=== PATIENT | female | born 1960 | race Caucasian/White ===

== ENCOUNTER → 2019-04-15 | Outpatient (CLI) | payer OTHER ==
--- NOTE | 2019-04-15 12:56 | XR ---
Lumbosacral spine HISTORY: Back pain, degenerative disc disease 5 views of the lumbar spine, no comparisons There is a levoscoliosis centered at L3. Multilevel spondylosis is present. Lumbar vertebral bodies s how preserved height. There is no evident spondylolysis. Bone mineralization slightly reduced. There is loss of disc height at intervertebral levels. Minimal anterolisthesis grade 1 L5-S1. Sclerosis pre sent in the posterior elements. Vacuum phenomenon present at intervertebral levels L2-3, L3-4, L4-5 a nd L5-S1. Suspect vascular calcifications. Focus of increased density over the right sacrum is indeterminate an d may represent bone island. IMPRESSION: Degenerative disc disease, facet arthropathy, spinal curvature, osteopenia. Additional fi ndings above. Follow-up as indicated.
== END | disposition home or self-care (01) ==
LOC: RADXRMAIN 09:44
PROVIDERS: ATTEND Family Medicine
DX: M47.896 Other spondylosis, lumbar region (principal); M51.36 Other intervertebral disc degeneration, lumbar region; M46.96 Unspecified inflammatory spondylopathy, lumbar region; M85.88 Other specified disorders of bone density and structure, other site
CPT/HCPCS: 72110

== ENCOUNTER → 2024-06-02 | Outpatient (CLI) | payer MEDICARE ==
--- NOTE | 2024-06-02 13:36 | CT ---
INDICATION: Patient age:Female; 63 years old; Reason for study: [facility] Protocol for left knee replacement, M25.562 PAIN IN LEFT KNEE; PHH. COMPARISON: None TECHNIQUE: Thin section axial CT imaging of the entire left lower extremity was performed per [facility] protocol, wit hout the administration of IV contrast. Additional axial images of the bilateral hips and ankles with other knee were also obtained. Reformatted images in coronal and sagittal views obtained. FINDINGS: There is no evidence of acute fracture or dislocation. The hips are grossly unremarkable. Postsurgical changes from hysterectomy. Pelvic phleboliths. The left knee demonstrates tricompartmental joint space narrowing with marginal osteophytosis. Consis tent with moderate osteophytic change. Small Gunter's cyst identified measuring up to 2.4 cm. The ankles grossly unremarkable. Bilateral posterior and plantar calcaneal enthesophytes. Degenerativ e changes of the bilateral midfoot. The visualized soft tissues appear grossly unremarkable within the limits of unenhanced CT. IMPRESSION: 1. [facility] protocol for left knee replacement. [facility], , 06/02/2024 1:34 PM
== END | disposition home or self-care (01) ==
LOC: RADCTMAIN 12:24
PROVIDERS: ATTEND Orthopaedic Surgery
DX: M25.562 Pain in left knee (principal); Z96.652 Presence of left artificial knee joint

== ENCOUNTER → 2024-06-12 | Outpatient (CLI) | payer OTHER ==
--- NOTE | 2024-06-12 17:12 | CT ---
EXAMINATION TYPE: CT knee LT wo con DATE OF EXAM: 06/12/2024 5:05 PM COMPARISON: 06/02/2024. CLINICAL INDICATION: Female, 63 years old with history of M25.562 PAIN L KNEE; PHH, Repeat left Abhinav Knee for surgical planning., pain, TECHNIQUE: Axial images were obtained of the bilateral hips, knee and bilateral ankles: CT knee LT w o con, Additional coronal and sagittal reformatted images and soft tissue and bone window were obtain ed for review of the bilateral hips, knee and bilateral ankles. Contrast used: mL of , (None if empty) Oral contrast used: (None if empty) CT DLP: 1435 mGycm, Automated exposure control for dose reduction was used. FINDINGS: The visualized portion of the hips demonstrate mild osteoarthrosis changes with osteophyte formation of the acetabulum. No acute intrapelvic process. The bony structures of the pelvis are intact. The visualized knee demonstrates osteophyte formation of the tibial plateau, the patella and femoral condyles. There is joint space narrowing and subchondral sclerosis. No evidence of fracture. The rig ht knee also demonstrates severe degeneration with osteophytes and joint space narrowing and. Calcifi ed joint bodies noted in the bilateral knee joints. The visualized ankles demonstrates multifocal osteoarthrosis changes with osteophyte formation and mi ld joint space narrowing. No evidence of fractures. Degeneration changes of the sacroiliac joints with vacuum phenomenon bilaterally. Other: No significant findings. The uterus is surgically absent. There may be a few scattered colonic diverticula. IMPRESSION: Severe bilateral osteoarthrosis changes of the knee. [facility], , 06/12/2024 5:10 PM
== END | disposition home or self-care (01) ==
LOC: RADCTMAIN 16:17
PROVIDERS: ATTEND Orthopaedic Surgery
DX: M17.0 Bilateral primary osteoarthritis of knee (principal)

== ENCOUNTER → 2024-06-13 | Outpatient (CLI) | payer BC ==
[2024-06-13 16:48] LABS: Partial Thromboplastin Time 26.7 sec (22.0-30.0); Prothrombin Time 10.8 sec (10.0-12.5)
== END | disposition home or self-care (01) ==
LOC: LABPAT 16:02
PROVIDERS: ATTEND Orthopaedic Surgery
DX: Z01.812 Encounter for preprocedural laboratory examination (principal); M17.12 Unilateral primary osteoarthritis, left knee; Z22.322 Carrier or suspected carrier of Methicillin resistant Staphylococcus aureus
CPT/HCPCS: 85610; 85730; 87070

== ENCOUNTER 2024-06-20 09:06 | Day surgery (SDC) | payer MEDICARE ==
[~2024-06-20 09:06] MED LIST: HYDROmorphone 0.5 MG/0.5 ML SYRINGE IVP PRN; MIDAZOLAM 2 MG/2 ML VIAL IV PRN; TRANEXAMIC 1,000 MG/100ML-NACL 1,000 MG in SALINE 1 100ML.BAG IV PRN; TRANEXAMIC 1,000 MG/100ML-NACL 1,000 MG in SALINE 1 100ML.BAG IVPB PRN
[2024-06-20] MEDS: fentaNYL (PF) 50 MCG/ML 2 ML AMP IVP ONE (10:29)
[2024-06-20] MEDS: MIDAZOLAM 2 MG/2 ML VIAL IVP ONE (10:29)
[2024-06-20] MEDS: ACETAMINOPHEN TAB 500 MG TAB PO PRN (10:42)
[2024-06-20] MEDS: LACTATED RINGERS 1,000 ML IV SCH (10:42)
[2024-06-20] MEDS: oxyCODONE ER 10 MG TAB.ER.12H PO PRN (10:43)
[2024-06-20] MEDS: DOCUSATE 100 MG CAP PO PRN (10:43)
[2024-06-20] MEDS: FAMOTIDINE 20 MG/2 ML VIAL IVP PRN (10:44)
[2024-06-20] MEDS: ONDANSETRON 4 MG/2 ML VIAL IVP PRN (10:44)
[2024-06-20] MEDS: DEXAMETHASONE SOD PHOSPHATE 10 MG/ML 1 ML VIAL IV PRN (10:44)
[2024-06-20] MEDS: KETOROLAC 15 MG/ML 1 ML VIAL IVP PRN (10:51)
[2024-06-20] MEDS: IV FLUID CONTINUATION 1,000 ML IV ONE (10:55)
[2024-06-20] MEDS ORDERED: PROPOFOL 10 MG/ML 20 ML VIAL IV ONE (12:34)
[2024-06-20] MEDS ORDERED: SUCCINYLCHOLINE CHLORIDE 200 MG/10 ML VIAL IV ONE (12:34)
[2024-06-20] MEDS ORDERED: TRANEXAMIC 1,000 MG/100ML-NACL PREMIX BAG ONE (12:34)
[2024-06-20] MEDS ORDERED: ePHEDrine 50 MG/ML 1 ML VIAL ONE (12:34)
[2024-06-20] MEDS ORDERED: MIDAZOLAM 2 MG/2 ML VIAL ONE (12:34)
[2024-06-20] MEDS ORDERED: fentaNYL (PF) 50 MCG/ML 2 ML AMP ONE (12:34)
[2024-06-20] MEDS ORDERED: ROPIVACAINE 5 MG/ML 30 ML VIAL ONE (12:34)
[2024-06-20] MEDS ORDERED: SODIUM CHLORIDE 0.9% (PF) 10 ML VIAL ONE (12:34)
[2024-06-20] MEDS ORDERED: LIDOCAINE 1% INJ 10MG/ML (20 ML MDV) ONE (12:34)
[2024-06-20] MEDS ORDERED: ROCURONIUM 10 MG/ML (5 ML VIAL) IV ONE (12:34)
[2024-06-20] MEDS: ROPIVACAINE/EPI/CLONIDINE/KET 50 ML SYRINGE MISCELLANE PRN (13:08)
--- NOTE | 2024-06-20 13:48 | P.ANPRN ---
Procedure Note - Anesthesia - Nerve Block Performed Left Adductor Canal Single Time Out Performed: Yes (1028) Date of Procedure: 06/20/24 Procedure Start Time: : Procedure Stop Time: :34 Location of Patient: PreOp Indication: Acute Post-Operative Pain, Requested by Surgeon Specifically requested for management of pain by DrNely: Martínez Echeverria Sedation Type: Sedate with meaningful contact maintained Preparation: Sterile Prep Position: Supine Catheter: None Needle Types: Pajunk Needle Gauge: 21 Ultrasound used to visualize needle placement: Yes Ultrasound used to observe medication spread: Yes Injectate: 0.5% Ropivacaine (see comment for volume) (15cc+10cc nacl pf) Blood Aspirated: No Pain Paresthesia on Injection Noted: No Resistance on Injection: Normal Image Stored and Saved: Yes Events: Uneventful and Well Tolerated
--- NOTE | 2024-06-20 13:49 | P.ANPRN ---
Procedure Note - Anesthesia - Nerve Block Performed Left iPack Single Time Out Performed: Yes (1028) Date of Procedure: 06/20/24 Procedure Start Time: 10:35 Procedure Stop Time: 10:39 Location of Patient: PreOp Indication: Acute Post-Operative Pain, Requested by Surgeon Specifically requested for management of pain by DrNely: Martínez Echeverria Sedation Type: Sedate with meaningful contact maintained Preparation: Sterile Prep Position: Supine Catheter: None Needle Types: Pajunk Needle Gauge: 21 Ultrasound used to visualize needle placement: Yes Ultrasound used to observe medication spread: Yes Injectate: 0.5% Ropivacaine (see comment for volume) (15cc+10cc nacl pf) Blood Aspirated: No Pain Paresthesia on Injection Noted: No Resistance on Injection: Normal Image Stored and Saved: Yes Events: Uneventful and Well Tolerated
[2024-06-20] MEDS ORDERED: NALOXONE 0.4 MG/ML 1 ML VIAL IV PRN (14:31)
[2024-06-20] MEDS ORDERED: HYDROmorphone 1 MG/ML 1 ML SYRINGE IVP PRN (14:31)
[2024-06-20] MEDS ORDERED: MAGNESIUM HYDROXIDE 2,400 MG/30 ML CUP PO PRN (14:31)
[2024-06-20] MEDS ORDERED: bisacodyL 10 MG SUPP RECTAL PRN (14:31)
[2024-06-20] MEDS ORDERED: diazePAM 5 MG TAB PO PRN (14:31)
[2024-06-20] MEDS ORDERED: NA PHOS,M-B/NA PHOS,DI-BA 133 ML ENEMA RECTAL PRN (14:31)
[2024-06-20] MEDS ORDERED: ONDANSETRON 4 MG/2 ML VIAL IVP PRN (14:31)
[2024-06-20] MEDS ORDERED: HYDROmorphone 0.5 MG/0.5 ML SYRINGE IVP PRN ×2 (14:31)
[2024-06-20] MEDS ORDERED: HYDROcodone/APAP 5-325MG 1 EACH TAB PO PRN (14:31)
--- NOTE | 2024-06-20 14:31 | P.OP ---
Date of Procedure: 06/20/24 Preoperative Diagnosis: Severe left knee osteoarthritis Postoperative Diagnosis: Same Procedure(s) Performed: 1. Left total knee arthroplasty 2. Computer assisted musculoskeletal navigation using CT/MRI images Implants: 1. [employer] CR Femur Size #4 2. [place] [employer] [place] Tibial Base Size #4 3. [place] [employer] CS poly Size #4, 10mm 4. [place] [employer] all poly patella, Size #29 Anesthesia: BERNARD, regional Surgeon: Martínez Echeverria Fitness Sales Associate #1: Cuco Huston Estimated Blood Loss (ml): 200 IV fluids (ml): 800 Pathology: none sent Condition: stable Disposition: PACU Indications for Procedure: I met with the patient preoperatively in the office setting and discussed treatment of their symptomatic knee arthritis. They failed a long course of nonsurgical treatment and elected to proceed with an elective total knee replacement. I discussed the potential risks and complications at length and gave them ample time to ask questions. Risks discussed included: risks from an esthesia, superficial site surgical infection, acute and/or chronic periprosthetic joint infection, delayed wound healing, drainage, wound necrosis, instability, stiffness, stiffness requiring manipulation and/or revision surgery, damage to local blood vessels or nerves, aseptic loosening of the implants, extensor mechanism issues including disruption, patellar maltracking, avascular necrosis etc., continued or worsened knee pain, generalized dissatisfaction with surgical outcome, need for revision surgery, an inability to regain preinjury level of function, DVT, PE, other medical complications, and possibly loss of life or limb. The patient voiced their understanding that while these are the most common complications other less common complications are possible. They provided both their verbal and written consent to go forward with surgery. Operative Findings: Severe tricompartmental osteoarthritis Description of Procedure: The patient was identified in preoperative holding and the correct operative extremity was verified and marked with a marker. I reviewed the consent form with the patient at length. All of their questions were answered. The patient was given a block by anesthesia. They were then brought back to the operating room. They were transferred onto the operating room table where a general anesthetic, preoperative antibiotics, and tranexamic acid were administered by anesthesia. A tourniquet was applied to the proximal aspect of the operative extremity. The contralateral extremity was padded under the heel and secured to the operating room table with a nonsterile blue towel and tape. The ipsilateral arm was carefully draped across the patient's chest and secured with a pillow and foam. A post was applied over the lateral aspect of the ipsilateral thigh and a bolster was placed under the ipsilateral foot. I verified that the operative extremity was stable and the knee was flexed to 90. The operative extremity was then placed in a leg hickman, nonsterile drapes were applied, and the extremity was prepped and draped sterilely in the standard sterile fashion. Prior to starting surgery timeout was performed identifying the correct patient, operative extremity, and procedure. The leg was then elevated, exsanguinated with an Esmarch bandage, and the tourniquet was inflated. An anterior midline incision was made sharply with a scalpel. Once I had dissected deep to the superficial fascial layer medial and lateral flaps were elevated. A medial parapatellar arthrotomy was created. Upon opening the knee joint there were diffuse arthritic changes in all 3 compartments. The anterior horn of the medial meniscus were sharply released and a medial release was performed around the posterior medial corner of the knee to facilitate retractor placement. The fat pad was excised with electrocautery. The patella was found to be severely arthritic and a provisional cut was made with a sagittal saw to facilitate mobilization of the extensor mechanism during the procedure. Remnants of the ACL and PCL were then excised from the notch. 4 mm pins were then placed within the incision in the medial distal femur and proximal tibia. Arrays were applied to the pins and I verified they were completely tightened. The knee was then registered with the [email or web address] robot and manipulations in implant position were made to balance the knee and opitmize implant position. Using the Abhinav robotic saw all cuts were made in accordance with our plan. After all bony fragments had been removed the cuts were verified with the planar probe. The tibia was then subluxed forward and sized. The knee was brought into flexion and a lamina coloring room worker was placed to allow removal of the meniscal remnants both medially and laterally as well as posterior osteophytes. Local anesthetic was then infiltrated around the joint capsule. Trial implants were then placed within the knee. Range of motion and collateral ligament tension was then evaluated. Adjustments in implant size and position were then made accordingly. Once the knee was felt to be appropriately balanced the Abhinav pins were removed. The patella was then recut, sized, and punched. A trial patellar button was then placed. With the trial components in place, the patella tracked midline. The femur was then drilled and the trial component removed. The trial tibial component was then appropriately rotated, pinned, and prepared for the keel. All trial components were then removed from the knee. The knee was thoroughly irrigated with pulsatile lavage. Cement was prepared via vacuum mixing in a bowl on the back table. I then hand pressurized cement into the femur and tibia and placed the implants beginning with the tibial base tray and poly liner, femoral component, and finally the patellar button. All extruded cement was removed including from the pin sites. Once the cement had hardened the knee was evaluated one final time with the final polyethylene liner in place. The knee had full extension and flexion and felt stable to varus and valgus stress throughout the arc of motion. The tourniquet was released and with the tourniquet down the patella tracked midline. All bleeders were controlled with electrocautery. The knee was then soaked for 3 minutes with a dilute Betadine soak. The knee was thoroughly irrigated using 3 L of sterile saline and pulsatile lavage. A deep drain was placed. The extensor mechanism was then reapproximated using pop off Vicryl sutures followed by a running barbed suture. The knee was then closed in layers with a 0 strata fix for the deep fascial layer, 2-0 strata fix for the superficial subcutaneous layer and Monocryl and Steri-Strips for the skin. A sterile dressing and drain sponge were applied. I verified that all instrument, sponge, and sharp counts were correct. The patient was then transferred off the operating room table, extubated, and brought to recovery having tolerated the procedure well. Cuco Huston PA-C was required as a skilled community program assistant due to the complexity of surgery for patient positioning, draping, exposure, retraction, closure of wound and application of dressing. PLAN: The patient can weight-bear as tolerated on the operative extremity. DVT prophylaxis with aspirin 81 mg twice a day based on preoperative risk stratification. Follow-up in the office in 2 weeks for wound check and x-rays of the knee including an AP and lateral.
[2024-06-20] MEDS: HYDROcodone/APAP 10-325MG 1 EACH TAB PO PRN (16:05)
[2024-06-20] MEDS: SODIUM CHLORIDE 0.9% 1,000 ML IV SCH (16:19)
--- NOTE | 2024-06-20 17:01 | XR ---
EXAMINATION TYPE: XR knee limited LT DATE OF EXAM: 06/20/2024 3:59 PM COMPARISON: None CLINICAL INDICATION: Female, 63 years old with history of Evaluation for Postop abnormality and align ment; PHH, pain TECHNIQUE: XR knee limited LT 2 views submitted. FINDINGS: Status post total knee arthroplasty changes with hardware in appropriate alignment and in tact. No evidence of fracture. Subcutaneous lucencies and lucencies within the joint consistent with surgical changes. IMPRESSION: Status post total knee arthroplasty changes with hardware intact and appropriate alignment. No fractu res identified. [facility], , 06/20/2024 4:59 PM
--- NOTE | 2024-06-20 17:02 | P.CONS ---
History of Present Illness - Reason for Consult Consult date: 06/20/24 - History of Present Illness Patient is a 63-year-old female with history of atrial flutter (on Eliquis), CHF with reduced ejection fraction, hyperlipidemia, osteoarthritis being seen as medical consult status post scheduled left total knee arthroplasty. She reports of minimal pain. Denies nausea, vomiting, chest pain, shortness of breath, or fever. Pertinent positives and negatives as discussed above, a complete review of systems was performed and all other systems are negative. Vitals: Signs Reviewed Physical Exam: General: nontoxic, no distress, appears at stated age Derm: warm, dry, intact Head: atraumatic, normocephalic, symmetric Eyes: EOMI, anicteric sclera Mouth: no lip lesion, mucus membranes moist Cardiovascular: S1 S2 reg, no murmur, rubs, or gallops Lungs: CTA bilateral, no rhonchi, no rales, no accessory muscle use Abdominal: soft, non-tender to palpataion, no appreciable organomegaly Extremities: no gross muscle atrophy, no edema, no contractures, surgical dressing seen on left knee Neuro: Alert, Oriented, CNII-XII grossly intact, gait normal Psych: well appearing, appropriate affect Assessment and Plan: Patient is a 63-year-old female with atrial flutter (on Eliquis), CHF with reduced ejection fraction, hyperlipidemia, osteoarthritis being seen status post scheduled left total knee arthroplasty. #. Atrial flutter, rate controlled Eliquis 5 mg p.o. twice daily resume -Continue Coreg 12.5 daily #. CHF with reduced ejection fraction #. Hyperlipidemia Coreg 12.5 mg p.o. daily Farxiga 10 mg p.o. daily Lisinopril 10 mg p.o. at bedtime Rosuvastatin 40 mg p.o. nightly #. Status post total left knee arthroplasty Pain management, fluids, antibiotics and DVT prophylaxis being managed by Ortho -CBC CMP pending Code status: Full code Thank you for this consultation. Will continue to follow for remainder of admission. Please do not hesitate to ask any further questions. Mikaela Contreras MD PGY-1 IM Dictation was produced using [employer] dictation software. please excuse any grammatical, word or spelling errors. I have seen and evaluated the patient today. Discussed with the resident and agree with the residents finding and plan as documented in the resident's note. Changes highlighted in blue font. Past Medical History Past Medical History: Atrial Flutter, Coronary Artery Disease (CAD), Hyperlipidemia, Osteoarthritis (OA) Additional Past Medical History / Comment(s): knee pain, valve issues per cardiac hx. per medical consult ulcerative colitis and osteopenia History of Any Multi-Drug Resistant Organisms: None Reported Past Surgical History: Cardiac Ablation Additional Past Surgical History / Comment(s): colonoscopy, "couple surgeries" not named by pt, several ablations. per chief wharfinger hx- vsd repair, cardioversion Past Anesthesia/Blood Transfusion Reactions: No Reported Reaction Smoking Status: Never smoker - Past Family History Mother Family Medical History: Osteoarthritis (OA) Father Family Medical History: Cancer, Osteoarthritis (OA) Medications and Allergies Home Medications Medication Instructions Recorded Confirmed Type Apixaban [Eliquis] 5 mg PO BID 06/16/24 06/16/24 History Dapagliflozin Propanediol [Farxiga] 10 mg PO DAILY 06/16/24 06/16/24 History Rosuvastatin [Crestor] 20 mg PO HS 06/16/24 06/16/24 History carvediloL [Carvedilol] 12.5 mg PO DAILY 06/16/24 06/16/24 History ramipriL 2.5 mg PO HS 06/16/24 06/16/24 History traMADol HCL 50 mg PO Q6H PRN 06/16/24 06/16/24 History Docusate [Colace] 100 mg PO BID #60 capsule 06/20/24 Rx HYDROcodone/APAP 5-325MG [[place] 1 - 2 tab PO Q6HR PRN #56 tab 06/20/24 Rx 5-325] Omeprazole [PriLOSEC] 40 mg PO DAILY #30 cap 06/20/24 Rx Ondansetron [Zofran] 4 mg PO Q8HR PRN #20 tab 06/20/24 Rx Allergies Allergy/AdvReac Type Severity Reaction Status Date / Time ibuprofen [From Motrin] Allergy decreased Verified 06/20/24 16:10 BP, LIghtheaded theophylline Allergy Decreased Verified 06/20/24 16:10 BP. lightheaded Physical Exam Vitals: Vital Signs Temp Pulse Pulse Resp BP Pulse Ox 06/20/24 16:05 97.6 F 81 18 106/60 91 L 06/20/24 15:51 82 18 107/61 94 L 06/20/24 15:38 82 18 117/62 94 L 06/20/24 15:23 84 17 112/60 95 06/20/24 15:08 85 17 135/63 94 L 06/20/24 14:53 97.2 F L 87 18 109/56 94 L 06/20/24 11:00 63 110/66 06/20/24 10:58 101/59 06/20/24 10:36 63 12 112/69 93 L 06/20/24 10:27 97.1 F L 67 20 125/58 96 Intake and Output 06/20/24 06/20/24 06/20/24 06:59 14:59 22:59 Intake Total 850 Output Total 100 Balance 750 Intake: IV 850 Output: Estimated Blood Loss 100 Other: Weight 110.4 kg 110.4 kg Results CBC & Chem 7: 06/20/24 16:34 06/20/24 16:34
[2024-06-20 17:10] LABS: Basophils % (A) 0 %; Eosinophils % (A) 0 %; HCT 46.1 % (34.0-46.0); HGB 14.6 gm/dL (11.4-16.0); Lymphocytes # (A) 0.6 k/uL (1.0-4.8); Lymphocytes % (A) 7 %; MCH 28.8 pg (25.0-35.0); MCHC 31.7 g/dL (31.0-37.0); MCV 90.9 fL (80.0-100.0); Mean Platelet Volume 7.1; Monocytes # (A) 0.1 k/uL (0-1.0); Monocytes % (A) 1 %; Neutrophils # (A) 8.8 k/uL (1.3-7.7); Neutrophils % (A) 91 %; Platelet Count 239 k/uL (150-450); RBC 5.07 m/uL (3.80-5.40); RDW 13.8 % (11.5-15.5); WBC 9.6 k/uL (3.8-10.6)
[2024-06-20 17:43] LABS: ALT 22 U/L (4-34); AST 28 U/L (14-36); African American GFR (CKD) >90 (>60 ml/min/1.73 sqM); Albumin 3.9 g/dL (3.5-5.0); Albumin/Globulin Ratio 1.2; Alkaline Phosphatase 80 U/L (38-126); Anion Gap 8 mmol/L; Blood Urea Nitrogen 19 mg/dL (7-17); Calcium 9.5 mg/dL (8.4-10.2); Carbon Dioxide 27 mmol/L (22-30); Chloride 102 mmol/L (98-107); Globulin 3.2 g/dL; Glucose 148 mg/dL (74-99); Magnesium 1.7 mg/dL (1.6-2.3); Non-African American GFR(CKD) 85 (>60 ml/min/1.73 sqM); Potassium 4.3 mmol/L (3.5-5.1); Sodium 137 mmol/L (137-145); Total Bilirubin 0.7 mg/dL (0.2-1.3); Total Protein 7.1 g/dL (6.3-8.2)
[2024-06-20] MEDS: lisinopriL 10 MG TAB PO SCH (20:32)
[2024-06-20] MEDS: SENNOSIDES-DOCUSATE SODIUM 1 EACH TAB PO SCH (20:40)
[2024-06-20] MEDS: ATORVASTATIN 40 MG TAB PO SCH (20:41)
[2024-06-20] MEDS ORDERED: ASPIRIN 81 MG PO SCH (21:00)
[2024-06-21 07:14] VITALS: BP 113/68; PULSE 78; TEMP 97.9
[2024-06-21] MEDS: APIXABAN 5 MG TAB PO SCH (08:25)
[2024-06-21] MEDS: MULTIVITAMINS, THERA 1 EACH TAB PO SCH (08:25)
[2024-06-21] MEDS: carvediloL 12.5 MG TAB PO SCH (08:25)
[2024-06-21] MEDS: DAPAGLIFLOZIN PROPANEDIOL 10 MG TABLET PO SCH (08:25)
--- NOTE | 2024-06-21 08:54 | P.DS ---
Providers Date of admission: 06/20/2024 Attending physician: Martínez Echeverria Consults: 06/20/24 14:31 Consult Physician Routine Consulting Provider: Chester Porras Consult Reason/Comments: post op medical management Do you want consulting provider notified?: Yes Primary care physician: [facility] Hospital Course: Patient is a very pleasant 63-year-old female who underwent uncomplicated left total knee replacement yesterday. Following surgery she was transferred to the orthopedic floor. She received 2 doses of postoperative antibiotics. She was restarted on her home dose of Eliquis DVT prophylaxis. She was seen postoperative day #1 and was doing well. Her dressing was intact. Femoral nerve function was intact. Her thigh and calf were compressible. She was able to actively plantarflex and dorsiflex her ankle and her toes. She was seen by internal medicine. She worked with physical therapy and was ultimately cleared for discharge home. The patient has Eliquis at home and does not need a prescription and will resume this for DVT prophylaxis in the postoperative period. Patient Condition at Discharge: Good Plan - Discharge Summary Discharge Rx Participant: No New Discharge Prescriptions: New Docusate [Colace] 100 mg PO BID #60 capsule Omeprazole [PriLOSEC] 40 mg PO DAILY #30 cap HYDROcodone/APAP 5-325MG [Bruce 5-325] 1 - 2 tab PO Q6HR PRN #56 tab PRN Reason: Pain Ondansetron [Zofran] 4 mg PO Q8HR PRN #20 tab PRN Reason: Nausea No Action Rosuvastatin [Crestor] 20 mg PO HS carvediloL [Carvedilol] 12.5 mg PO DAILY Apixaban [Eliquis] 5 mg PO BID traMADol HCL 50 mg PO Q6H PRN PRN Reason: Pain ramipriL 2.5 mg PO HS Dapagliflozin Propanediol [Farxiga] 10 mg PO DAILY Discharge Medication List Apixaban [Eliquis] 5 mg PO BID 06/16/24 [History] Dapagliflozin Propanediol [Farxiga] 10 mg PO DAILY 06/16/24 [History] Rosuvastatin [Crestor] 20 mg PO HS 06/16/24 [History] carvediloL [Carvedilol] 12.5 mg PO DAILY 01/13/25 [History] ramipriL 2.5 mg PO HS 06/16/24 [History] traMADol HCL 50 mg PO Q6H PRN 06/16/24 [History] Docusate [Colace] 100 mg PO BID #60 capsule 06/20/24 [Rx] HYDROcodone/APAP 5-325MG [Bruce 5-325] 1 - 2 tab PO Q6HR PRN #56 tab 06/20/24 [Rx] Omeprazole [PriLOSEC] 40 mg PO DAILY #30 cap 06/20/24 [Rx] Ondansetron [Zofran] 4 mg PO Q8HR PRN #20 tab 06/20/24 [Rx] Follow up Appointment(s)/Referral(s): Martínez Echeverria MD [Medical Doctor] - 2 Weeks Activity/Diet/Wound Care/Special Instructions: 1. Weight-bear as tolerated on your operative extremity unless instructed otherwise. Use a walker or other assistive device to ambulate. 2. Leave surgical dressing in place. If your dressing becomes saturated with blood, there is drainage, or the dressing becomes loose please contact the office. 3. It is okay to shower with your surgical dressing, but do not submerge in water (no hot tubs, bath's, swimming etc.) 4. Make sure to take her blood clot prevention medication as prescribed (aspirin, Eliquis, Xarelto, and Plavix are commonly prescribed medications for blood clot prevention) 5. While taking Bruce or Percocet for pain make sure you're taking a stool softener (Colace) and drink lots of water. 6. Keep all follow-up appointments as scheduled. You will usually be seen in 1-2 weeks following surgery. 7. Please contact the office with any questions or concerns [phone] Discharge Disposition: HOME WITH HOME HEALTH SERVICES
[2024-06-21 09:41] LABS: BUN/Creat Ratio 23.12 Ratio (12.00-20.00); Blood Urea Nitrogen 18.5 mg/dL (9.0-27.0); Calcium 9.3 mg/dL (8.7-10.3); Carbon Dioxide 23.7 mmol/L (21.6-31.8); Chloride 105 mmol/L (96-109); Glucose 134 mg/dL (70-110); Potassium 4.9 mmol/L (3.5-5.5); Sodium 139 mmol/L (135-145)
[2024-06-21 09:53] LABS: Basophils # (A) 0.04 X 10*3/uL (0.00-0.10); Basophils % (A) 0.2 %; Eosinophils # (A) 0 X 10*3/uL (0.04-0.35); Eosinophils % (A) 0 %; HCT 39.4 % (37.2-46.3); HGB 12.4 g/dL (12.0-15.0); Lymphocytes # (A) 0.98 X 10*3/uL (0.90-5.00); Lymphocytes % (A) 5.2 %; MCH 28.2 pg (27.0-32.0); MCHC 31.5 g/dL (32.0-37.0); MCV 89.7 FL (80.0-97.0); Mean Platelet Volume 10.5 FL (9.5-12.2); Monocytes # (A) 1.38 X 10*3/uL (0.20-1.00); Monocytes % (A) 7.4 %; NRBC Per 100 WBC 0 X 10*3/uL (0.00-0.01); Neutrophils # (A) 16.19 X 10*3/uL (1.80-7.70); Neutrophils % (A) 86.7 %; Platelet Count 236 X 10*3/uL (140-440); RBC 4.39 X 10*6/uL (4.10-5.20); RDW 13.9 % (11.5-14.5); WBC 18.69 X 10*3/uL (4.50-10.00)
[2024-06-21 10:08] VITALS: RESP 16
[2024-06-21] MEDS: hydrOXYzine pamoate 25 MG CAP PO PRN (10:44)
--- NOTE | 2024-06-21 12:07 | P.PN ---
Subjective Progress Note Date: 06/21/24 Patient is a 63-year-old female with history of atrial flutter (on Eliquis), CHF with reduced ejection fraction, hyperlipidemia, osteoarthritis being seen as medical consult status post scheduled left total knee arthroplasty. She reports of minimal pain. Denies nausea, vomiting, chest pain, shortness of breath, or fever. 06/21/2024: Patient seen and evaluated bedside. No acute complaints, no events overnight. Pertinent positives and negatives as discussed above, a complete review of systems was performed and all other systems are negative. Vitals: Signs Reviewed Physical Exam: General: nontoxic, no distress, appears at stated age Derm: warm, dry, intact Head: atraumatic, normocephalic, symmetric Eyes: EOMI, anicteric sclera Mouth: no lip lesion, mucus membranes moist Cardiovascular: S1 S2 reg, no murmur, rubs, or gallops Lungs: CTA bilateral, no rhonchi, no rales, no accessory muscle use Abdominal: soft, non-tender to palpataion, no appreciable organomegaly Extremities: no gross muscle atrophy, no edema, no contractures, surgical dressing seen on left knee Neuro: Alert, Oriented, CNII-XII grossly intact, gait normal Psych: well appearing, appropriate affect WBC 18.69, creatinine 0.8 Assessment and Plan: Patient is a 63-year-old female with atrial flutter (on Eliquis), CHF with reduced ejection fraction, hyperlipidemia, osteoarthritis being seen status post scheduled left total knee arthroplasty. #. Atrial flutter, rate controlled Eliquis 5 mg p.o. twice daily resume - Continue Coreg 12.5 daily #. CHF with reduced ejection fraction, not in exacerbation #. Hyperlipidemia Coreg 12.5 mg p.o. daily Farxiga 10 mg p.o. daily Lisinopril 10 mg p.o. at bedtime Rosuvastatin 40 mg p.o. nightly #. Status post total left knee arthroplasty Leukocytosis, anticipated outcome of surgery Pain management, fluids, antibiotics and DVT prophylaxis being managed by Ortho Code status: Full code Patient is medically optimized for discharge. Thank you for this consultation. Will continue to follow for remainder of admission. Please do not hesitate to ask any further questions. Mikaela Contreras MD PGY-1 IM Dictation was produced using dragon dictation software. please excuse any grammatical, word or spelling errors. I have seen and evaluated the patient today. Discussed with the resident and agree with the residents finding and plan as documented in the resident's note. Changes highlighted in blue font. Objective - Vital Signs Vital signs: Vital Signs Temp 97.9 F 06/21/24 07:14 Pulse 78 06/21/24 07:14 Resp 15 06/21/24 07:14 BP 113/68 06/21/24 07:14 Pulse Ox 93 L 06/21/24 07:14 FiO2 Intake & Output 06/20/24 06/21/24 06/21/24 18:59 06:59 18:59 Intake Total 850 Output Total 100 Balance 750 Weight 110.4 kg Intake: IV 850 Output: Estimated Blood Loss 100 Other: # Voids 0 1 - Labs CBC & Chem 7: 06/21/24 06:02 06/21/24 06:02 Labs: Abnormal Lab Results - Last 24 Hours (Table) 06/20/24 06/20/24 Range/Units 16:34 16:34 Hct 46.1 H (34.0-46.0) % Neutrophils # 8.8 H (1.3-7.7) k/uL Lymphocytes # 0.6 L (1.0-4.8) k/uL BUN 19 H (7-17) mg/dL Glucose 148 H (74-99) mg/dL
== END 2024-06-21 11:52 | disposition home health service (06) ==
LOC: OR 09:06 → 4SSUR 14:50 → OR 06-21 11:52
PROVIDERS: ATTEND Orthopaedic Surgery
DX: M17.12 Unilateral primary osteoarthritis, left knee (principal)
CPT/HCPCS: 0055T; 27447; 64999; 64447; 80048; 80053; 83735; 85025